=== PATIENT | female | born 1985 | race African-American/Black ===

== ENCOUNTER 2017-07-12 12:50 | Emergency (ER) | payer MEDICAID ==
[~2017-07-12] VITALS: Ht 165.1 cm; Wt 77.8 kg
[2017-07-12 13:35] VITALS: BP 121/76
--- NOTE | 2017-07-12 13:45 | NUR ---
32 yo F BIB self w/ c/o lower back pain 8/ that begins at her coccyx and radiates up to her lower back. Pt reports pain began 2 days ago. She lifts heavy items at work and recently moved a couch. Pt A&O x 4. GCS 15. Ambulatory w/ steady gait. Pt does not hunch over when walking. No bruising or abnormalities noted. Respirations even and unlabored, lung sounds clear bilaterally. Pt denies n/v/d at this time. CMS intact. ER MD Eid notified of pt status. Pt needs met at this time. Will continue to monitor.
[2017-07-12] MEDS ORDERED: CYCLOBENZAPRINE 10 MG TAB PO ONE (13:50)
[2017-07-12] MEDS ORDERED: KETOROLAC 30 MG/ML VIAL IM ONE (13:50)
[2017-07-12 15:29] VITALS: BP 121/76
--- NOTE | 2017-07-12 15:29 | NUR ---
Patient discharged with v/s stable. Written and verbal after care instructions given and explained. Patient alert, oriented and verbalized understanding of instructions. Ambulatory with steady gait. All questions addressed prior to discharge. ID band removed. Patient advised to follow up with PMD. Rx of Mirilax and Ibuprofen given. Patient educated on indication of medication including possible reaction and side effects. Opportunity to ask questions provided and answered.
== END 2017-07-12 15:29 | disposition home or self-care (01) ==
LOC: MED 12:50
DX: S39.012A Strain of muscle, fascia and tendon of lower back, initial encounter (principal); X50.0XXA Overexertion from strenuous movement or load, initial encounter; Y93.89 Activity, other specified; Y92.89 Other specified places as the place of occurrence of the external cause; Y99.8 Other external cause status
CPT/HCPCS: 72100; 81002; 81025; 96372; 99284; J1885